=== PATIENT | female | born 1980 | race Caucasian/White ===

== ENCOUNTER 2020-11-16 15:22 | Emergency (ER) | payer OTHER ==
[~2020-11-16] VITALS: Ht 167.6 cm; Wt 75.1 kg
--- NOTE | 2020-11-16 16:59 | EKG ---
[address] [address] Test Date: 2020-11-16 Test Time: 16:44:13 Pat Name: TRISTAN COBB Department: Room: Gender: F Print Room Worker: JULIANO : 1980 Requested By: MARAH JAMES Order Number: [id number] Reading MD: Measurements Intervals [place] Rate: 73 P: 0 WA: 158 QRS: 17 QRSD: 70 T: 31 QT: 368 QTc: 409 Interpretive Statements SINUS RHYTHM NORMAL ECG RI6.02 No previous ECG available for comparison
[2020-11-16 17:13] LABS: BASO % 1 % (0-3); EOS # 0.2 x10^3/uL (0.0-0.7); EOS % 3 % (0-3); HEMATOCRIT 43.4 % (36.0-47.0); LYMPH # 1.3 x10^3/uL (1.0-4.8); LYMPH % 22 % (24-48); MEAN CORPUSCULAR HEMOGLOBIN 32 pg (25-35); MEAN CORPUSCULAR HGB CONC 35 g/dL (31-37); MEAN CORPUSCULAR VOLUME 94 fL (79-100); MONO # 0.6 x10^3/uL (0.0-1.1); MONO % 10 % (0-9); NEUT # 3.7 x10^3uL (1.8-7.7); NEUT % 65 % (31-73); PLATELET COUNT 253 x10^3/uL (140-400); RED BLOOD COUNT 4.63 x10^6/uL (3.50-5.40); RED CELL DISTRIBUTION WIDTH 12.8 % (11.5-14.5); WHITE BLOOD COUNT 5.8 x10^3/uL (4.0-11.0)
[2020-11-16 17:19] LABS: CALCIUM 8.3 mg/dL (8.5-10.1); CREATININE 0.8 mg/dL (0.6-1.0); POTASSIUM 4.3 mmol/L (3.5-5.1)
[2020-11-16 17:25] LABS: ALBUMIN 3.6 g/dL (3.4-5.0); ALBUMIN/GLOBULIN RATIO 1.1 (1.0-1.7); TOTAL BILIRUBIN 0.4 mg/dL (0.2-1.0); TOTAL PROTEIN 6.8 g/dL (6.4-8.2)
--- NOTE | 2020-11-16 17:29 | RAD ---
XR CHEST 2V History: Reason: short of breath / Spl. Instructions: / History: Comparison: None. Findings: No consolidation or pleural effusion. Normal heart size. No pneumothorax. Impression: 1. No acute cardiopulmonary process. Electronically signed by: Johann Ibrahim DO (11/16/2020 5:27 PM) [facility] [place]
--- NOTE | 2020-11-16 18:38 | PHYS DOC ---
Past History Past Medical History: No Pertinent History (MARAH JAMES APRN) Past Surgical History: No Surgical History (MARAH JAMES APRN) Alcohol Use: Occasionally (MARAH JAMES APRN) Adult General Chief Complaint Chief Complaint: WEAKNESS/GENERALIZED HPI HPI Patient is a 40-year-old female presents to the emergency department with chief complaint of off and on numbness and tingling to her upper and lower extremities that started suddenly sometime in April 2020. Patient states that she was originally worked up at the [facility] by her primary care physician and ultimately sent to [facility] for an MRI, also was worked up for MS, had a cardiac work-up and several other labs taken but she does not know all the names of, patient states she was told there was nothing wrong with her and has not had a follow-up appointment since June 2020. Patient states she continues to have intermittent numbness and tingling to her extremities. Patient states she is getting ready to move to a different [employer] [place] and tried to see her primary care doctor the [facility] but was told there were no appointments available and to come straight to the emergency department today. Patient currently denies headaches, fever or chills, dizziness, syncopal episodes, nausea, vomiting, diarrhea, denies vaginal discharge, denies STI concerns. Patient denies chest pains, chest congestion or nasal congestion. Patient states the last episode of numbness and tingling started last Monday, gradually became better over Monday and Monday. Patient describes her symptoms as weakness and tingling with numbness to her hands and feet. Patient states her episode started back again on this past Monday. Patient denies taking prescription medications, states she has an allergy to sulfa medications. Patient states she has a history of seasonal allergies in which she takes Claritin for. Patient denies any other physical complaints or physical concerns. (MARAH JAMES APRN) Review of Systems Review of Systems 14 body systems of review of systems have been reviewed. See HPI for pertinent positives and negative responses, otherwise all other systems are negative, nonpertinent or noncontributory. (MARAH JAMES APRN) Allergies Allergies Allergies Coded Allergies Type Severity Reaction Last Updated Verified Sulfa (Sulfonamide Antibiotics) Allergy Unknown hives 11/16/20 Yes (MARAH JAMES APRN) Physical Exam Physical Exam Constitutional: Well developed, well nourished, no acute distress, non-toxic appearance. 40-year-old female in no apparent distress. HENT: Normocephalic, atraumatic, bilateral external ears normal, oropharynx moist, no oral exudates, nose normal. No infectious process appreciated of the oropharynx, no postnasal drip. Bilateral TMs unappreciated related to cerumen impaction bilateral external auditory canals, visualized external auditory canals within normal limits, no swelling or erythema appreciated. Eyes: PERRLA, EOMI, conjunctiva normal, no discharge. Neck: Normal range of motion, no tenderness, supple, no stridor. Cardiovascular:Heart rate regular rhythm, no murmur, heart sounds S1-S2 to auscultation Lungs & Thorax: Bilateral breath sounds clear to auscultation all lung connor. Abdomen: Bowel sounds normal, soft, no tenderness, no masses, no pulsatile masses. Skin: Warm, dry, no erythema, no rash. Back: No tenderness, no CVA tenderness. Extremities: No tenderness, no cyanosis, no clubbing, ROM intact, no edema. Patient does complain of tingling and numbness to bilateral upper and lower extremities, hands and feet. Distal cap refill less than 2 seconds, 2+ dorsalis pedis/posterior tibial pulses, 2+ radial pulses. No cyanosis appreciated, no swelling appreciated, full AROM/PROM of upper and lower extremities. No deformities, no crepitus appreciated. Neurologic: Alert and oriented X 3, normal motor function, normal sensory function, no focal deficits noted. Deep tendon reflexes within normal limits, normal Babinski's test, normal movement of facial muscles. Psychologic: Affect normal, judgement normal, mood normal. (MARAH JAMES APRN) Current Patient Data Vital Signs Vital Signs Date Time Temp Pulse Resp B/P (MAP) Pulse Ox O2 Delivery O2 Flow Rate FiO2 11/16/20 15:25 98.2 85 17 152/101 (118) 97 Room Air Lab Results Laboratory Tests Test 11/16/20 16:44 11/16/20 16:45 11/16/20 18:15 White Blood Count 5.8 x10^3/uL Red Blood Count 4.63 x10^6/uL Hemoglobin 15.0 g/dL Hematocrit 43.4 % Mean Corpuscular Volume 94 fL Mean Corpuscular Hemoglobin 32 pg Mean Corpuscular Hemoglobin Concent 35 g/dL Red Cell Distribution Width 12.8 % Platelet Count 253 x10^3/uL Neutrophils (%) (Auto) 65 % Lymphocytes (%) (Auto) 22 % Monocytes (%) (Auto) 10 % Eosinophils (%) (Auto) 3 % Basophils (%) (Auto) 1 % Neutrophils # (Auto) 3.7 x10^3uL Lymphocytes # (Auto) 1.3 x10^3/uL Monocytes # (Auto) 0.6 x10^3/uL Eosinophils # (Auto) 0.2 x10^3/uL Basophils # (Auto) 0.0 x10^3/uL Sodium Level 143 mmol/L Potassium Level 4.3 mmol/L Chloride Level 105 mmol/L Carbon Dioxide Level 27 mmol/L Anion Gap 11 Blood Urea Nitrogen 10 mg/dL Creatinine 0.8 mg/dL Estimated GFR (Cockcroft-Gault) 79.0 BUN/Creatinine Ratio 13 Glucose Level 94 mg/dL Calcium Level 8.3 mg/dL Total Bilirubin 0.4 mg/dL Aspartate Amino Transf (AST/SGOT) 18 U/L Alanine Aminotransferase (ALT/SGPT) 29 U/L Alkaline Phosphatase 73 U/L Troponin I Quantitative < 0.017 ng/mL Total Protein 6.8 g/dL Albumin 3.6 g/dL Albumin/Globulin Ratio 1.1 Urine Collection Type Unknown Urine Color Yellow Urine Clarity Hazy Urine pH 7.5 Urine Specific [employer] 1.020 Urine Protein Trace Urine Glucose (UA) Neg mg/dL Urine Ketones (Stick) 15 mg/dL Urine Blood Neg Urine Nitrite Neg Urine Bilirubin Small Urine Urobilinogen Dipstick >=8.0 mg/dL Urine Leukocyte Esterase Neg Urine RBC Occ /HPF Urine WBC Occ /HPF Urine Squamous Epithelial Cells Many /LPF Urine Bacteria Few /HPF Bedside Urine HCG, Qualitative hcg negative Laboratory Tests Test 11/16/20 16:44 11/16/20 18:15 White Blood Count 5.8 x10^3/uL (4.0-11.0) Red Blood Count 4.63 x10^6/uL (3.50-5.40) Hemoglobin 15.0 g/dL (12.0-15.5) Hematocrit 43.4 % (36.0-47.0) Mean Corpuscular Volume 94 fL (79-100) Mean Corpuscular Hemoglobin 32 pg (25-35) Mean Corpuscular Hemoglobin Concent 35 g/dL (31-37) Red Cell Distribution Width 12.8 % (11.5-14.5) Platelet Count 253 x10^3/uL (140-400) Neutrophils (%) (Auto) 65 % (31-73) Lymphocytes (%) (Auto) 22 % (24-48) L Monocytes (%) (Auto) 10 % (0-9) H Eosinophils (%) (Auto) 3 % (0-3) Basophils (%) (Auto) 1 % (0-3) Neutrophils # (Auto) 3.7 x10^3uL (1.8-7.7) Lymphocytes # (Auto) 1.3 x10^3/uL (1.0-4.8) Monocytes # (Auto) 0.6 x10^3/uL (0.0-1.1) Eosinophils # (Auto) 0.2 x10^3/uL (0.0-0.7) Basophils # (Auto) 0.0 x10^3/uL (0.0-0.2) Sodium Level 143 mmol/L (136-145) Potassium Level 4.3 mmol/L (3.5-5.1) Chloride Level 105 mmol/L (98-107) Carbon Dioxide Level 27 mmol/L (21-32) Anion Gap 11 (6-14) Blood Urea Nitrogen 10 mg/dL (7-20) Creatinine 0.8 mg/dL (0.6-1.0) Estimated GFR (Cockcroft-Gault) 79.0 BUN/Creatinine Ratio 13 (6-20) Glucose Level 94 mg/dL (70-99) Calcium Level 8.3 mg/dL (8.5-10.1) L Total Bilirubin 0.4 mg/dL (0.2-1.0) Aspartate Amino Transferase (AST) 18 U/L (15-37) Alanine Aminotransferase (ALT) 29 U/L (14-59) Alkaline Phosphatase 73 U/L (46-116) Troponin I Quantitative < 0.017 ng/mL (0-0.055) Total Protein 6.8 g/dL (6.4-8.2) Albumin 3.6 g/dL (3.4-5.0) Albumin/Globulin Ratio 1.1 (1.0-1.7) POC Urine HCG, Qualitative hcg negative (Negative) (MARAH JAMES APRN) EKG EKG EKG performed at 1644 by house respiratory therapy staff, shows a normal sinus rhythm without other ectopy, DE interval 0.158, QTc interval 0.409, no acute STEMI, no ACS, no acute ischemia appreciated, EKG interpreted by ED attending physician Dr. Beebe. (MARAH JAMES APRN) Radiology/Procedures Radiology/Procedures PATIENT: TRISTAN COBB ACCOUNT: [id number] : 1980 LOCATION: ER AGE: 40 SEX: F EXAM STATUS: REG ER ORD. PHYSICIAN: MARAH JAMES APRN REASON: short of breath PROCEDURE: CHEST PA & LATERAL XR CHEST 2V History: Reason: short of breath / Spl. Instructions: / History: Comparison: None. Findings: No consolidation or pleural effusion. Normal heart size. No pneumothorax. Impression: 1. No acute cardiopulmonary process. Electronically signed by: Johann Ibrahim DO (11/16/2020 5:27 PM) [facility] DICTATED AND SIGNED BY: JOHANN IBRAHIM DO DATE: 11/16/201725 CC: MARAH JAMES APRN; ASHLEY CÁRDENAS; EMERGENCY,DEPARTMENT ~MTH0 0 (MARAH JAMES APRN) Heart Score C/O Chest Pain: No Risk Factors: Risk Factors: DM, Current or recent (<one month) smoker, HTN, HLP, family history of CAD, obesity. Risk Scores: Risk Factors: DM, Current or recent (<one month) smoker, HTN, HLP, family history of CAD, obesity. (MARAH JAMES APRN) Course & Med Decision Making Course & Med Decision Making Pertinent Labs and Imaging studies reviewed. (See chart for details) 40-year-old female, vital signs reviewed, presents emergency department chief complaint numbness and tingling to her extremities. Physical exam was unremarkable, patient has been worked up for similar symptoms in the past, however patient reports she has not seen a neurologist or have a referral for neurologist since her symptoms have started. Patient symptoms most likely a neuropathy, will rule out infectious process, cardiopulmonary process, urinary tract infection, if work-up negative will recommend follow-up with neurology. Patient is amenable to this plan. The patient is not per urine test, the patient's labs negative for cardiopulmonary process or infection, the patient's troponin was not concerning. Patient is EKG not concerning, patient's chest x-ray negative for acute cardiopulmonary process per house radiologist rotation. Urinalysis assay pending at this time. Patient urine unremarkable results, the patient's urine is not infected, discussed findings with patient, discussed with patient will diagnosed with neuropathy, encourage patient to follow-up with primary care for consideration of neurology consult for further investigation of symptoms. Patient gave verbal understanding of discharge home instructions, follow-up with PCP, neurology specialist, return ER precautions and concerns, patient had no further questions or concerns and was discharged home without incident A TSH was ordered, lab not expected to result for about 2-3 more days. (MARAH JAMES APRN) Dragon Disclaimer Dragon Disclaimer This electronic medical record was generated, in whole or in part, using a voice recognition dictation system. (MARAH JAMES APRN) Attending Co-Sign The patient was seen and interviewed as well as examined at the bedside. The chart was reviewed. The case was discussed. Agree with the plan of care. (DORA BEEBE DO) Departure Departure: Impression: Primary Impression: Neuropathy Disposition: HOME / SELF CARE / HOMELESS Condition: GOOD Referrals: ASHLEY CÁRDENAS (PCP) Additional Instructions: You were evaluated today for numbness and tingling to your extremities, there were no concerning findings on your labs that would warrant admission to the hospital or immediate intervention by a specialist, we did discuss your potassium level being slightly low, please consider taking a potassium supplement, please follow-up with your primary care physician for neurology consult. Return to the emergency department for worsening symptoms or other concerns. EMERGENCY DEPARTMENT GENERAL DISCHARGE INSTRUCTIONS Thank you for coming to [facility] (ED) today and trusting us with you care. We trust that you had a positivie experience in our Emergency Department. If you wish to speak to the department management, you may call the director at [phone]. YOUR FOLLOW UP INSTRUCTIONS ARE FOLLOWS: 1. Do you have a private Doctor? If you do not have a private doctor, please ask for a resource list of physicians or clinics that may be able to assist you with follow up care. 2. The Emergency Physician has interpreted your x-rays. The X-Ray specialist will also review them. If there is a change in the findings, you will be notified in 48 hours when at all possible. 3. A lab test or culture has been done, your results will be reviewed and you will be notified if you need a change in treatment. ADDITIONAL INSTRUCTIONS AND INFORMATION: 1. Your care today has been supervised by a physician who is specially trained in emergency care. Many problems require more than one evaluation for a complete diagnosis and treatment. We recommend that you schedule your follow up appointment as recommended to ensure complete treatment of you illness or injury. If you are unable to obtain follow up care and continue to have a problem, or if your condition worsens, we recommend that you return to the ED. 2. We are not able to safely determine your condition over the phone nor are we able to give sound medical advice over the phone. For these safety reasons, if you call for medical advice we will ask you to come to the ED for further evaluation. 3. If you have any questions regarding these discharge instructions please call the ED at [phone]. SAFETY INFORMATION: In the interest of safety, wellness, and injury prevention; we encourage you to wear your sealbelt, if you smoke; quite smoking, and we encourage family to use a protective helmet for bicycling and other sporting events that present an increased risk for head injury. IF YOUR SYMPTOMS WORSEN OR NEW SYMPTOMS DEVELOP, OR YOU HAVE CONCERNS ABOUT YOUR CONDITION; OR IF YOUR CONDITION WORSENS WHILE YOU ARE WAITING FOR YOUR FOLLOW UP APPOINTMENT; EITHER CONTACT YOUR PRIMARY CARE DOCTOR, THE PHYSICIAN WHOSE NAME AND NUMBER YOU WERE GIVEN, OR RETURN TO THE ED IMMEDIATELY. MARAH JAMES APRN November 16, 2020 18:38 DORA BEEBE DO November 19, 2020 07:00
[2020-11-16 18:43] LABS: BACTERIA,URINE FEW /HPF (0-FEW); BILIRUBIN,URINE SMALL (NEG); CLARITY,URINE HAZY; COLOR,URINE YELLOW; GLUCOSE,URINE NEG (NEG); NITRITE,URINE NEG (NEG); RBC,URINE OCC /HPF (0-2); SQUAMOUS EPITHELIAL CELL,UR MANY /LPF; UROBILINOGEN,URINE >=8.0 mg/dL (0.2 mg/dL); WBC,URINE OCC /HPF (0-4)
[2020-11-16 20:16] VITALS: BP 132/70
== END 2020-11-16 20:15 | disposition home or self-care (01) ==
LOC: ER 15:22
DX: G62.9 Polyneuropathy, unspecified (principal); Z88.2 Allergy status to sulfonamides
CPT/HCPCS: 36415; 71046; 80053; 81001; 81025; 84443; 84484; 85025; 93005; 99285